=== PATIENT | female | born 1970 | race Caucasian/White ===

== ENCOUNTER 2018-10-23 22:27 | Observation (INO) | payer SELFPAY ==
[2018-10-23] MEDS ORDERED: Nitroglycerin 0.4 MG TAB 1 EACH ONE (23:55)
[2018-10-23] MEDS ORDERED: Ondansetron PF 4 MG/2 ML Vial IVP PRN (23:59)
[2018-10-23] MEDS ORDERED: Acetaminophen 650 MG Suppository PR PRN (23:59)
[2018-10-24 01:15] VITALS: BMI 42.7
[2018-10-24 02:44] LABS: #Basophils 0.1 thou/uL (0.0-0.2); #Eosinphils 0.2 thou/uL (0.0-0.7); #Lymphocytes 3.3 thou/uL (1.20-3.40); #Monocytes 0.6 thou/uL (0.11-0.59); #Neutrophils 2.5 thou/uL (1.40-6.50); %Basophils 1.1 % (0.0-1.0); %Eosinophils 3.3 % (0.0-10.0); %Lymphocytes 49.2 % (21.0-51.0); %Neutrophils 37.4 % (42.0-75.0); Hemoglobin 15.2 g/dL (12.0-16.0); Mean Corpuscular HGB CONC 32.9 g/dL (32.0-36.0); Mean Corpuscular Hemoglobin 30.6 pg (27.0-31.0); Mean Corpuscular Volume 93.1 fL (78.0-98.0); Mean Platelet Volume 8.1 fL (7.4-10.4); Platelet Count 232 thou/uL (130-400); RBC Distribution Width 12.3 % (11.5-14.5); Red Blood Cell (RBC) Count 4.98 mill/uL (4.20-5.40); White Blood Cell (WBC) Count 6.7 thou/uL (4.8-10.8)
[2018-10-24 03:08] LABS: Troponin I Less than 0.010 ng/mL (< 0.028)
[2018-10-24 03:22] LABS: Anion Gap 15 mmol/L (10-20); BUN (Urea Nitrogen) 12 mg/dL (7.0-18.7); Calc. Creatinine Clearance 148 mL/min (70-130); Calcium 9.2 mg/dL (7.8-10.44); Carbon Dioxide 19 mmol/L (22-29); Chloride 109 mmol/L (98-107); Estimated GFR-MDRD 88; Glucose 98 mg/dL (70-105); Potassium 3.7 mmol/L (3.5-5.1); Sodium 139 mmol/L (136-145)
--- NOTE | 2018-10-24 05:05 | HP ---
PRIMARY CARE DOCTOR: The patient has no PCP. CODE STATUS: Full code. TIME OF EVALUATION: 12 a.m. CHIEF COMPLAINT: Chest pain. HISTORY OF PRESENT ILLNESS: A 48-year-old female patient. The patient came to the hospital after having chest pain that started around 3 days ago and reported that was in the middle of the chest radiating to jaw. She got very scary because the symptoms being getting worse and has been severe and reportedly she had some acute SC a few months ago, also on the other side she said that she had a negative stress test in [place], [place], in [facility]. Symptoms are described as pressure-like, associated with nausea. REVIEW OF SYSTEMS: CONSTITUTIONAL: No fever, chills, or generalized weakness. RESPIRATORY: No cough, sputum production, or shortness of breath. CARDIOVASCULAR: The patient has chest pain. No palpitations. GASTROINTESTINAL: The patient has nausea. No vomiting, diarrhea, or abdominal pain. SUPERVISOR MACHINING: No dizziness, headache, or feeling lightheaded. GENITOURINARY: No burning on urination. EXTREMITIES: No leg swelling. All other systems were reviewed and negative except for the findings mentioned above. PAST MEDICAL HISTORY: Includes diabetes and hypertension. PAST SURGICAL HISTORY: Hysterectomy, carpal tunnel bilateral surgery, and cholecystectomy. PSYCHIATRIC HISTORY: Bipolar disorder. SOCIAL HISTORY: No alcohol. No drugs. No smoking history. FAMILY HISTORY: Reviewed and noncontributory for current presentation. ALLERGIES: SULFA AND PENICILLIN. REPORTED MEDICATIONS: 1. Cymbalta. 2. [place] carbonate. 3. Atenolol. 4. Jardiance. 5. . 6. Abilify. PHYSICAL EXAMINATION: VITAL SIGNS: Blood pressure 146/106 with heart rate 87, respiratory rate was 18, temperature 98.1, pain was 7, oxygen saturation was 97% on room air. GENERAL APPEARANCE: The patient is alert, oriented, no acute distress. HEENT: Eyes, normal conjunctivae. Moist oral mucosa. Anicteric. No JVD. RESPIRATORY: Bilateral air entry. No rales or wheezes. Symmetric expansion. CARDIOVASCULAR: Normal rate, regular rhythm. No murmurs. No gallop. No edema. ABDOMEN: Soft. Normal bowel sounds. MUSCULOSKELETAL: Baseline range of motion and strength. No tenderness. SKIN: Warm and intact. No pallor. No rash. No redness. Capillary refill seems to be intact. NEUROLOGIC: No evidence of any new focal weakness. Cranial nerves seems to be intact. PSYCH: The patient is in good mood. No anxiety. Optimal judgment. IMAGING DATA: EKG was reviewed. The patient has normal sinus rhythm with a rate of 77, [place] 142, QRS duration 88, QT corrected 443. Chest x-ray was reviewed. The patient has no acute cardiopulmonary findings. LABORATORY DATA: Labs were reviewed. The patient has a white count 6.7, hemoglobin 15.2, MCV 93, platelet count 232. Chemistry; sodium 139, potassium 3.7, chloride 109, carbon dioxide 19, anion gap 15, BUN 12, creatinine 0.71, GFR 88, glucose 98, calcium 9.2. Troponin negative x2. ASSESSMENT AND PLAN: The patient will be placed in the hospital with following medical problems: 1. Chest pain, rule out acute coronary syndrome. We will trend troponin, until they are negative. We will place her on observation daily. She will need to obtain a stress test report from [facility] in [place], [place] that she had 3 months ago, most likely will not need to repeat the same test again. 2. History of depression, reconcile home medications. 3. Controlled diabetes. We will reconcile home medication. We will place the patient on sliding scale for optimal control. 4. Deep venous thrombosis prophylaxis. Job ID: [id number]
[2018-10-24] MEDS: Ondansetron ODT 4 MG TAB PO PRN (07:42)
[2018-10-24] MEDS: Acetaminophen 325 MG TAB PO PRN ×3 (07:42→22:08)
[2018-10-24] MEDS: DULoxetine 30 MG CAP PO SCH (07:42)
[2018-10-24] MEDS: Atenolol 25 MG TAB PO SCH (07:43)
[2018-10-24] MEDS: Enoxaparin Sodium 40 MG/0.4 ML SYRINGE SC SCH (07:44)
[2018-10-24] MEDS: Insulin Glargine 20 UNITS in Pre-Filled Syringe 1 EACH SC SCH ×2 (07:45→20:08)
--- NOTE | 2018-10-24 18:54 | PRG ---
DATE OF SERVICE: 10/24/2018 SUBJECTIVE: Ms. Torres is a 48-year-old female with past medical history significant for diabetes, hypertension, and recent IA approximately 3 months ago , who presented to the hospital with chest pain radiating up into the jaw. Her EKG was negative for any acute ST or T-wave changes. Her serial enzymes have been negative; however, we are awaiting stress test results from [facility] in [place], from which the patient says she had a recent stress test. At this point , the patient does not report any chest pain similar to the episode she experienced yesterday; however, she does report a 2/10 constant chest discomfort. She denies any nausea or vomiting. She denies any shortness of breath. OBJECTIVE: VITAL SIGNS: Blood pressure 117/79, pulse is 75, O2 saturation is 94% on room air, respirations 20. GENERAL: This is an obese female, in no acute distress. HEENT: Head is atraumatic and normocephalic. Mucous membranes are moist. NECK: Supple. No lymphadenopathy. Trachea is midline. CV: S1 and S2. Regular rate and rhythm. No appreciable murmurs, rubs, or gallops. LUNGS: Regular respiratory rate and pattern. Clear to auscultation bilaterally. ABDOMEN: Soft, obese. Positive bowel sounds. EXTREMITIES: No edema. +2 DP pulses bilaterally. SKIN: Warm and dry. NEUROLOGIC: Cranial nerves 2 through 12 intact. The patient is nonfocal. LABORATORY DATA: WBC 6.7, RBC 4.92, hemoglobin 15.2, hematocrit 46.4, platelets are 232. Sodium 139, potassium 3.7, chloride 109, carbon dioxide 19, anion gap 15, creatinine 0.71, GFR 88, calcium 9.2. Troponin negative x2. ASSESSMENT: 1. Chest pain with radiation to the jaw, acute coronary syndrome ruled out. 2. Previous myocardial infarction, unknown type, but recent, the patient reports elevated cardiac enzymes. 3. Hypertension. 4. Diabetes mellitus type 2. 5. History of anxiety and depression. PLAN: At this point, we have requested records from [facility] in [place], [place]. Given the patient's repeat episode of angina, we will need to review recent nuclear stress test. I am worried about the patient's recent IA and recurrence of chest pain. The patient apparently did not have a left heart catheterization, and I would prefer to obtain nuclear stress test results rather than re-stressing the patient with radiation exposure so soon after last stress test, that was reportedly normal per patient. If stress test negative, will anticipate discharge if no further angina; if the patient continues to have recurrent chest pain, she will need a left heart catheterization at some point. Start ASA , statin. Continue B Megha. Consider ACEI. Care of this patient was discussed with Dr. Keith. Job ID: [id number] [facility]
[2018-10-25] MEDS: DULoxetine 30 MG CAP PO SCH (07:21)
[2018-10-25] MEDS: Enoxaparin Sodium 40 MG/0.4 ML SYRINGE SC SCH (07:21)
[2018-10-25] MEDS: Atenolol 25 MG TAB PO SCH (07:21)
[2018-10-25] MEDS: Aspirin 81 mg Enteric Coated Tablet PO SCH (07:21)
[2018-10-25] MEDS: Insulin Glargine 20 UNITS in Pre-Filled Syringe 1 EACH SC SCH ×2 (07:22→20:13)
[2018-10-25 12:32] LABS: #Basophils 0.1 thou/uL (0.0-0.2); #Eosinphils 0.1 thou/uL (0.0-0.7); #Lymphocytes 2.3 thou/uL (1.20-3.40); #Monocytes 0.4 thou/uL (0.11-0.59); #Neutrophils 3.9 thou/uL (1.40-6.50); %Lymphocytes 33.7 % (21.0-51.0); %Monocytes 5.6 % (0.0-10.0); %Neutrophils 56.8 % (42.0-75.0); Hemoglobin 15.8 g/dL (12.0-16.0); Mean Corpuscular HGB CONC 33.6 g/dL (32.0-36.0); Mean Corpuscular Hemoglobin 31.4 pg (27.0-31.0); Mean Corpuscular Volume 93.3 fL (78.0-98.0); Mean Platelet Volume 8.6 fL (7.4-10.4); Platelet Count 234 thou/uL (130-400); RBC Distribution Width 12.2 % (11.5-14.5); Red Blood Cell (RBC) Count 5.03 mill/uL (4.20-5.40); White Blood Cell (WBC) Count 6.8 thou/uL (4.8-10.8)
[2018-10-25 12:42] LABS: Anion Gap 13 mmol/L (10-20); BUN (Urea Nitrogen) 12 mg/dL (7.0-18.7); Calc. Creatinine Clearance 140 mL/min (70-130); Calcium 9.2 mg/dL (7.8-10.44); Carbon Dioxide 22 mmol/L (22-29); Chloride 106 mmol/L (98-107); Estimated GFR-MDRD 83; Glucose 133 mg/dL (70-105); Potassium 3.9 mmol/L (3.5-5.1); Sodium 137 mmol/L (136-145)
[2018-10-25] MEDS: Acetaminophen 325 MG TAB PO PRN (12:50)
[2018-10-25] MEDS: Ondansetron ODT 4 MG TAB PO PRN (12:51)
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
[2018-10-25] MEDS ORDERED: Dextrose 5% in Water 1,000 ML IV PRN (17:25)
[2018-10-25] MEDS ORDERED: Dextrose 50% Abboject 50 ML SYRINGE SLOW IVP PRN (17:25)
[2018-10-25] MEDS ORDERED: HumaLOG 300 UNITS/3 ML VIAL SC PRN ×2 (17:25)
[2018-10-25] MEDS ORDERED: Atorvastatin Calcium 20 MG TAB PO SCH (21:00)
[2018-10-26] MEDS: Acetaminophen 325 MG TAB PO PRN (02:44)
[2018-10-26] MEDS: Enoxaparin Sodium 40 MG/0.4 ML SYRINGE SC SCH (09:40)
[2018-10-26] MEDS: Atenolol 25 MG TAB PO SCH (09:41)
[2018-10-26] MEDS: Insulin Glargine 20 UNITS in Pre-Filled Syringe 1 EACH SC SCH (09:41)
[2018-10-26] MEDS: Aspirin 81 mg Enteric Coated Tablet PO SCH (09:41)
[2018-10-26] MEDS: DULoxetine 30 MG CAP PO SCH (09:41)
[2018-10-26 12:05] VITALS: BP 109/64; TEMP 98.5
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
== END 2018-10-26 15:42 | disposition home or self-care (01) ==
LOC: ERS 22:27 → 2SW 23:44
PROVIDERS: ADMIT Hospitalist; ATTEND Hospitalist
DX: R07.89 Other chest pain (principal); R68.84 Jaw pain; E11.9 Type 2 diabetes mellitus without complications; I10 Essential (primary) hypertension; F31.9 Bipolar disorder, unspecified; F41.9 Anxiety disorder, unspecified; I25.2 Old myocardial infarction; I25.10 Atherosclerotic heart disease of native coronary artery without angina pectoris; Z88.2 Allergy status to sulfonamides; Z88.0 Allergy status to penicillin; Z79.4 Long term (current) use of insulin; Z79.899 Other long term (current) drug therapy
CPT/HCPCS: 36415; 36416; 80048; 84484; 85025; 85652; 90471; 90732; 93005; 96372; G0009; G0378; J1650; J1825; Q0162

== ENCOUNTER 2018-12-25 11:16 | Inpatient (IN) | payer SELFPAY ==
[2018-12-25 11:31] LABS: #Basophils 0.1 thou/uL (0.0-0.2); #Eosinphils 0.2 thou/uL (0.0-0.7); #Lymphocytes 4.1 thou/uL (1.20-3.40); #Monocytes 0.7 thou/uL (0.11-0.59); #Neutrophils 3.7 thou/uL (1.40-6.50); %Basophils 1.2 % (0.0-1.0); %Eosinophils 2.2 % (0.0-10.0); %Lymphocytes 46.3 % (21.0-51.0); %Monocytes 8.2 % (0.0-10.0); %Neutrophils 42.1 % (42.0-75.0); Hemoglobin 15.8 g/dL (12.0-16.0); Mean Corpuscular HGB CONC 33.6 g/dL (32.0-36.0); Mean Corpuscular Hemoglobin 30.5 pg (27.0-31.0); Mean Corpuscular Volume 90.8 fL (78.0-98.0); Mean Platelet Volume 8.1 fL (7.4-10.4); Platelet Count 320 thou/uL (130-400); RBC Distribution Width 12.3 % (11.5-14.5); Red Blood Cell (RBC) Count 5.18 mill/uL (4.20-5.40); White Blood Cell (WBC) Count 8.8 thou/uL (4.8-10.8)
[2018-12-25 11:39] LABS: PTT 24.9 SEC (22.9-36.1); Prothrombin Time 12.7 SEC (12.0-14.7)
[2018-12-25 11:50] LABS: ALT (SGPT) 31 U/L (8-55); AST (SGOT) 27 U/L (5-34); Albumin 4.2 g/dL (3.5-5.0); Alkaline Phosphatase 120 U/L (40-150); Anion Gap 15 mmol/L (10-20); BUN (Urea Nitrogen) 11 mg/dL (7.0-18.7); Bilirubin, Total 0.4 mg/dL (0.2-1.2); CK (CPK) 254 U/L (29-168); Calc. Creatinine Clearance 0 mL/min (70-130); Calcium 9.6 mg/dL (7.8-10.44); Carbon Dioxide 23 mmol/L (22-29); Chloride 103 mmol/L (98-107); Estimated GFR-MDRD 79; Globulin 3.2 g/dL (2.4-3.5); Glucose 177 mg/dL (70-105); Potassium 3.6 mmol/L (3.5-5.1); Protein, Total 7.4 g/dL (6.0-8.3); Sodium 137 mmol/L (136-145)
--- NOTE | 2018-12-25 12:31 | RAD ---
EXAM: Single view of the chest HISTORY: Left chest heaviness COMPARISON: 10/23/2018 FINDINGS: Single view of the chest shows a normal sized cardiomediastinal silhouette. There is no adrian dence of consolidation, mass, or pleural effusion. The bones are unremarkable. IMPRESSION: No evidence of acute cardiopulmonary disease
--- NOTE | 2018-12-25 12:31 | CT ---
NONCONTRAST CT HEAD: HISTORY: Left-sided weakness that began last night at midnight. Heaviness on left side of face. COMPARISON: None. FINDINGS: There is no evidence of a hemorrhage, acute infarct, mass effect, or midline shift. The ventricular system is normal in size, shape, and position. The limited visualized paranasal sinuses and mastoid air cells are clear. Calvarial structures have a normal appearance. IMPRESSION: 1. No acute intracranial abnormalities demonstrated. 2. The above findings were discussed with Dr. Barajas in the emergency department on 12/25/2018 at 12 06 hours. CODE CR POS: [email or web address]
[2018-12-25 13:14] LABS: Bacteria/HPF None Seen HPF (None Seen); Bilirubin Negative (Negative); Blood, Urine 2+ (Negative); Clarity Clear (Clear); Glucose, Urine (Dipstick) Greater than 1000 mg/dL (Negative); Leukocyte 75 Leu/uL (Negative); Nitrite Negative (Negative); Protein, Urine (Dipstick) Negative (Neg-Trace); RBC/HPF 21-50 HPF (0-3); Squamous Epithelial 0-3 HPF (0-3); Transitional Epithelial 0-3 HPF (None Seen); Urobilinogen Normal mg/dL (Less than 2)
--- NOTE | 2018-12-25 13:23 | CT ---
CT ANGIOGRAM HEAD WITH IV CONTRAST AND 3D RECONSTRUCTIONS CT ANGIOGRAM NECK WITH IV CONTRAST AND 3D RECONSTRUCTIONS: HISTORY: Left-side weakness that began last night at midnight. Heaviness to left side of face. COMPARISON: Noncontrast CT head on 12/25/2018. FINDINGS: There is a normal arrangement of the great vessels at the aortic arch which are patent. There is a c ommon origin of the innominate artery and left common carotid artery. A portion of the left subclavi an artery is not visualized due to dense contrast within the left subclavian vein. The innominate and right subclavian artery are patent. The bilateral common carotid arteries as well as the bilateral internal and external carotid arteries are patent. The vertebral arteries are codominant and patent. The bilateral anterior cerebral and middle cerebral arteries are patent. The anterior cerebral arter y is visualized and patent. The posterior cerebral arteries are patent with patent posterior communicating arteries also visualiz ed. Bilateral middle cerebral and anterior cerebral arteries are patent. No focal stenosis or branch occlusion is seen. There is no aneurysm identified within the limitations of the technique of this exam. There is a 9 mm hypodense nodule in the superior pole of the left lobe of the thyroid gland. Nonemer gent thyroid ultrasound is recommended. There is volume loss present in the visualized upper lung zones. Degenerative changes are seen in the cervical spine. IMPRESSION: 1. Patent bilateral carotid arteries. 2. Patent bilateral vertebral arteries. 3. No focal stenosis or branch occlusion is seen involving the [place] or vertebrobasilar s ystem, and no filling defects are seen to suggest thrombus. 4. Hypodense nodule left lobe of the thyroid gland. Nonemergent thyroid ultrasound is recommended f or further evaluation. 5. The above findings were discussed with Dr. Barajas in the emergency department on 12/25/2018 at 123 6 hours. CODE CR POS: LIZ
[2018-12-25] MEDS ORDERED: Ondansetron PF 4 MG/2 ML Vial ONE (13:58)
[2018-12-25] MEDS ORDERED: Aspirin Chewable 81 MG TAB ONE (13:59)
[2018-12-25] MEDS ORDERED: Senokot S 8.6-50 MG TAB PO PRN ×2 (14:06→17:05)
[2018-12-25] MEDS ORDERED: hydrALAZINE 20 MG/ML VIAL SLOW IVP PRN ×2 (14:06→17:05)
[2018-12-25] MEDS ORDERED: Ondansetron ODT 4 MG TAB PO PRN (14:06)
[2018-12-25] MEDS ORDERED: Acetaminophen 325 MG TAB PO PRN (14:06)
[2018-12-25] MEDS ORDERED: Bisacodyl 10 MG SUPP PR PRN ×2 (14:06→17:04)
[2018-12-25] MEDS ORDERED: HumaLOG 300 UNITS/3 ML VIAL SC PRN (14:06)
[2018-12-25] MEDS ORDERED: Ondansetron PF 4 MG/2 ML Vial IVP PRN ×2 (14:06→17:05)
[2018-12-25] MEDS ORDERED: Dextrose 5% in Water 1,000 ML IV PRN ×2 (14:06→17:04)
[2018-12-25] MEDS ORDERED: Dextrose 50% Abboject 50 ML SYRINGE SLOW IVP PRN ×2 (14:06→17:04)
[2018-12-25] MEDS ORDERED: Sodium Chloride 0.9% 1,000 ML IV SCH (14:15)
--- NOTE | 2018-12-25 15:40 | HP ---
PRIMARY CARE PHYSICIAN: Dr. Neo Bar. CHIEF COMPLAINT: Left-sided numbness and heaviness. HISTORY OF PRESENT ILLNESS: A 48-year-old female with known history of obesity, hypertension, bipolar disorder, and tobacco abuse disorder, brought in by EMS due to left-sided limb weakness and numbness. The patient reported that she started having left-sided facial numbness as well as left-sided upper and lower extremity heaviness since last night. Symptoms persisted even this morning associated with nausea and ill feeling, but she managed to get to work. At work, colleagues found she had elevated blood pressure of about 170/116. There was some concern about stroke, given persistent left-sided heaviness, hence EMS were called. EMS noted blood pressure above 200s on arrival and the patient was given sublingual nitroglycerin followed by nitroglycerin paste. When the patient arrived in the emergency room, blood pressure was 133 systolic. However, during my evaluation, blood pressure did drop to 96 systolic. The patient reportedly took 325 mg of aspirin last night, which she normally does and was also given 81 mg tablets x2 this morning at work place before arrival. She also complained of some blurred vision on the left eye. There was no associated chest pain, shortness of breath, leg swelling, dysuria, hematuria, abdominal pain, cough, palpitations. She admitted to headache, but headache started after nitroglycerin paste was started and it subsided when nitroglycerin paste was finally taken off by me. The patient reported that she has been working a lot recently. Evaluation in the emergency room with CT of head, CT angio of head and neck were unremarkable. The patient is admitted for further evaluation and treatment. PAST MEDICAL HISTORY: 1. Bipolar disorder. 2. Obesity. 3. Type-2 diabetes mellitus. 4. Tobacco abuse disorder. 5. Hypertension. PAST SURGICAL HISTORY: 1. Bilateral carpal tunnel release. 2. Right foot fracture repair with implant. 3. Cholecystectomy. FAMILY HISTORY: Significant for hypertension, diabetes, and coronary artery disease in mother; hypertension, Parkinson, and dementia in father. SOCIAL HISTORY: The patient lives with spouse. Smokes about half-a-pack a day. Denied recreational drug use. ALLERGIES: REPORTED ALLERGY TO THE FOLLOWING; 1. PENICILLIN. 2. SULFA. REVIEW OF SYSTEMS: A 12-point review of system performed was negative other than pertinent negatives and positives included in the history of present illness. PHYSICAL EXAMINATION: VITAL SIGNS: Most recent vitals showed BP of 90/60, pulse 88, respiratory rate 18, SpO2 of 98% on room air, and temperature of 98.2. GENERAL: Obese female, in no obvious distress. Afebrile. Anicteric. Acyanotic. HEENT: Normocephalic, atraumatic. Pupils are equal and reacting to light. Oral mucosa is moist. NECK: Supple, nontender with full range of motion. CARDIOVASCULAR: Regular rhythm and rate with normal heart sounds 1 and 2. RESPIRATORY: Fair air entry bilaterally with no obvious crackle or rhonchi or use of accessory muscles. GI: Obese, soft, nontender, nondistended with normal bowel sounds. EXTREMITIES: Grossly normal looking, atraumatic with no edema, erythema, or cyanosis. Distal pulses are palpable. NEUROLOGIC: Conscious, alert, and oriented x3 with appropriate mental status. The patient is conversational with no dysarthria or aphasia. Cranial nerves 2 through 12 are grossly intact with the exception of decreased sensation on the left side of face. There is no facial droop. Power is 5/5 at right lower and upper extremities and 4/5 at left upper and lower extremities. There is mild drift of both left upper and lower extremities. Sensation is grossly decreased on the left side of body. Tone and reflex are grossly normal. PSYCHIATRIC: Normal affect with appropriate behavior and insight. DIAGNOSTIC DATA: CBC showed WBC count of 8.8, hemoglobin of 15.8, MCV of 90.8, platelets of 320. Coagulation panel showed PT 12.7, INR 1.0, PTT 24.9. BMP showed sodium 137, potassium 3.6, chloride 103, CO2 of 23, BUN 11, creatinine 0.78, glucose 177, calcium 9.6, total bilirubin 0.4, AST 27, ALT 31, alkaline phosphatase 120, total protein 7.4, albumin 4.2, globulin 3.2. Initial cardiac markers showed CK 254, troponin less than 0.01. Urinalysis showed light-yellow clear urine with pH of 6.0 and specific gravity of greater than 1.060. Protein is negative as well as ketone, nitrites, bilirubin. Leukocyte esterase is positive as well as blood. Glucose is more than a 1000 mg/dL. Microscopy showed RBC 21-50 and WBC of 4-6. EKG showed normal sinus rhythm with rate of 87. Chest x-ray showed no evidence of acute cardiopulmonary disease. CT of brain showed no acute intracranial abnormality. CT angio of the head and neck showed patent bilateral carotid arteries, patent bilateral vertebral arteries, no focal stenosis or branch occlusion involving the [place] of vertebrobasilar system and there were no filling defects to suggest thrombus. Hypodense nodular left lobe lesion of the thyroid was noted. Ultrasound is recommended for further evaluation. ASSESSMENT: 1. Acute left hemiparesis and hemisensory loss. 2. Presumed acute cerebrovascular accident. 3. Medication-induced hypotension. 4. Thyroid nodule. 5. Type-2 diabetes mellitus with hyperglycemia. 6. Morbid obesity. 7. Tobacco abuse disorder. 8. Microscopic hematuria. 9. Bipolar disorder. 10. Hypertension, on medication. PLAN: 1. We will give 1 L bolus of normal saline to get blood pressures above 100. 2. We will also admit the patient to the stroke unit and commence neuro checks and NIH score monitoring. 3. We will give additional 162 mg of aspirin to bring a total of 324. 4. We will start the patient on Lipitor as well as insulin therapy. 5. We will get hemoglobin A1c and TSH. 6. We will also get echocardiogram and MRI of the brain for further evaluation of acute left-sided hemiparesis or hemisensory loss. 7. DVT prophylaxis with Lovenox will be provided. 8. PT, OT, and Speech therapy will be consulted for evaluation. 9. Diabetic diet as tolerated will be commenced. 10. We will also start the patient's antidepressant. 11. Further treatment to follow depending on hospital course. 12. Code status: Full code. Spouse is the surrogate decision maker. Job ID: [id number]
[2018-12-25 16:14] VITALS: BMI 41.5
[2018-12-25] MEDS ORDERED: ISOVUE-370 76%-LOCM 1 ML ONE (16:15)
[2018-12-25] MEDS: Nicotine 14 MG PATCH TD SCH (17:13)
[2018-12-25] MEDS: Ondansetron ODT 4 MG TAB PO PRN (18:53)
[2018-12-25] MEDS: Acetaminophen 325 MG TAB PO PRN (18:53)
[2018-12-25] MEDS: HumaLOG 300 UNITS/3 ML VIAL SC PRN (18:53)
[2018-12-25] MEDS ORDERED: Lithium Carbonate 150 MG CAP PO SCH (21:00)
[2018-12-25] MEDS ORDERED: Insulin Glargine 20 UNITS in Pre-Filled Syringe 1 EACH SC SCH (21:00)
[2018-12-25] MEDS ORDERED: Famotidine 20 MG TAB PO SCH (21:00)
[2018-12-25] MEDS ORDERED: Atorvastatin Calcium 40 MG TAB PO SCH (21:00)
[2018-12-25] MEDS: Famotidine 20 MG TAB PO SCH (21:16)
[2018-12-25] MEDS: Atorvastatin Calcium 40 MG TAB PO SCH (21:16)
[2018-12-25] MEDS: Insulin Glargine 20 UNITS in Pre-Filled Syringe SC SCH (21:16)
[2018-12-25] MEDS: Lithium Carbonate 150 MG CAP PO SCH (21:16)
[2018-12-26] MEDS: HumaLOG 300 UNITS/3 ML VIAL SC PRN ×3 (06:32→18:27)
[2018-12-26] MEDS ORDERED: Enoxaparin Sodium 40 MG/0.4 ML SYRINGE SC SCH (09:00)
[2018-12-26] MEDS ORDERED: Aspirin 325 mg Enteric Coated Tablet PO SCH (09:00)
[2018-12-26] MEDS ORDERED: DULoxetine 30 MG CAP PO SCH (09:00)
--- NOTE | 2018-12-26 10:26 | MRI ---
NONCONTRAST MRI OF THE BRAIN: HISTORY: Left-sided weakness with heaviness to left side of face. TIA. COMPARISON: CT head on 12/25/2018. FINDINGS: There is a single punctate focus of increased FLAIR and T2 weighted signal intensity in the left deniz ventricular white matter of uncertain etiology but of doubtful clinical significance. No additional signal abnormalities are seen throughout the brain. There is no evidence of an acute infarction. The septum pellucidum and third ventricle are in the midline. The ventricular system is normal in si ze, shape, and position. Appropriate flow voids are demonstrated at the base of the brain. The orbits, paranasal sinuses, and skull base demonstrate a normal MRI appearance. IMPRESSION: No acute intracranial abnormality is demonstrated. POS: LIZ
[2018-12-26 10:50] LABS: #Basophils 0.1 thou/uL (0.0-0.2); #Eosinphils 0.2 thou/uL (0.0-0.7); #Lymphocytes 2.9 thou/uL (1.20-3.40); #Monocytes 0.6 thou/uL (0.11-0.59); #Neutrophils 3.5 thou/uL (1.40-6.50); %Basophils 0.9 % (0.0-1.0); %Eosinophils 2.5 % (0.0-10.0); %Lymphocytes 40.6 % (21.0-51.0); %Monocytes 7.8 % (0.0-10.0); %Neutrophils 48.2 % (42.0-75.0); Hemoglobin 15.8 g/dL (12.0-16.0); Mean Corpuscular HGB CONC 32.7 g/dL (32.0-36.0); Mean Corpuscular Hemoglobin 30.5 pg (27.0-31.0); Mean Corpuscular Volume 93.3 fL (78.0-98.0); Platelet Count 229 thou/uL (130-400); RBC Distribution Width 12.6 % (11.5-14.5); Red Blood Cell (RBC) Count 5.19 mill/uL (4.20-5.40); White Blood Cell (WBC) Count 7.2 thou/uL (4.8-10.8)
[2018-12-26 10:53] LABS: Hemoglobin A1c 8.3 % (4.0-6.0)
[2018-12-26] MEDS: Aspirin 325 mg Enteric Coated Tablet PO SCH (11:00)
[2018-12-26] MEDS: Lithium Carbonate 150 MG CAP PO SCH ×2 (11:00→20:58)
[2018-12-26] MEDS: DULoxetine 30 MG CAP PO SCH (11:00)
[2018-12-26] MEDS: Famotidine 20 MG TAB PO SCH ×2 (11:00→20:57)
[2018-12-26] MEDS: Insulin Glargine 20 UNITS in Pre-Filled Syringe SC SCH ×2 (11:01→20:57)
[2018-12-26] MEDS: Enoxaparin Sodium 40 MG/0.4 ML SYRINGE SC SCH (11:01)
[2018-12-26 11:21] LABS: BUN (Urea Nitrogen) 13 mg/dL (7.0-18.7); Calc. Creatinine Clearance 128 mL/min (70-130); Calcium 9.3 mg/dL (7.8-10.44); Carbon Dioxide 15 mmol/L (22-29); Cardiac Risk 4.3 (Less than 4.5); Chloride 106 mmol/L (98-107); Cholesterol 194 mg/dl (< 200 Desired); Estimated GFR-MDRD 77; Glucose 294 mg/dL (70-105); HDL Cholesterol 45 mg/dL (>60 Neg Risk); LDL Cholesterol, Calculated 107 mg/dL; Potassium 5.6 mmol/L (3.5-5.1); Sodium 131 mmol/L (136-145); Triglycerides 208 mg/dL (Less than 150)
[2018-12-26 11:36] LABS: Anion Gap 16 mmol/L (10-20)
--- NOTE | 2018-12-26 12:45 | PDOC.HOSPP ---
- Subjective Encounter Date: 12/26/18 Encounter Time: 12:44 Subjective: 48 y/o admitted with acute onset of left sided numbness and heaviness. Numbness persists. No facial drop. - Objective Vital Signs & Weight: Vital Signs (12 hours) Temp Pulse Resp BP BP Pulse Ox 12/26/18 07:42 98 F 95 12 131/97 H 95 12/26/18 04:00 98.4 F 93 16 136/89 94 L Weight Weight 205 lb 14.4 oz I&O: 12/25/18 12/26/18 12/27/18 06:59 06:59 06:59 Intake Total 1000 Balance 1000 Result Diagrams: 12/26/18 10:32 12/26/18 10:32 Additional Labs: Accuchecks 12/26/18 12/26/18 12/25/18 10:28 05:38 20:54 POC Glucose 281 H 311 H 314 H 12/25/18 17:19 POC Glucose 198 H ROS - Medication Medications: Active Medications Generic Name Dose Route Start Last Admin Trade Name Freq PRN Reason Stop Dose Admin Acetaminophen 650 mg 12/25/18 17:04 12/25/18 18:53 Tylenol PO 650 mg Q4H PRN Administration Headache/Fever/Mild Pain (1-3) Aspirin 325 mg 12/26/18 09:00 12/26/18 11:00 Ecotrin PO 325 mg DAILY FARIHA Administration Atorvastatin Calcium 40 mg 12/25/18 21:00 12/25/18 21:16 Lipitor PO 40 mg HS FARIHA Administration Duloxetine HCl 90 mg 12/26/18 09:00 12/26/18 11:00 Cymbalta PO 90 mg DAILY FARIHA Administration Enoxaparin Sodium 40 mg 12/26/18 09:00 12/26/18 11:01 Lovenox SC 40 mg 0900 FARIHA Administration Famotidine 20 mg 12/25/18 21:00 12/26/18 11:00 Pepcid PO 20 mg BID FARIHA Administration Insulin Glargine 20 units/ 0.2 mls @ 0 mls/hr 12/25/18 21:00 12/26/18 11:01 Miscellaneous Medication SC 0.2 mls BID FARIHA Administration Insulin Human Lispro 0 units 12/25/18 17:05 12/26/18 06:32 Humalog SC 5 unit .MILD SLIDING SCALE PRN Administration Mild Correctional Scale [place] Carbonate 300 mg 12/25/18 21:00 12/26/18 11:00 [place] Carbonate PO 300 mg BID FARIHA Administration Nicotine 14 mg 12/25/18 14:00 12/25/18 17:13 Nicoderm Patch TD 14 mg Q24HR FARIHA Administration Ondansetron HCl 4 mg 12/25/18 17:05 12/25/18 18:53 Zofran Odt PO 4 mg Q6H PRN Administration Nausea/Vomiting - Exam awake alert General - other findings: obese Eye: PERRL, anicteric sclera ENT: normocephalic atraumatic, moist mucosa Neck: supple, symmetric, no JVD Heart: RRR, no murmur Respiratory: CTAB, no wheezes, no rales, no ronchi Gastrointestinal: soft, non-tender, non-distended, normal bowel sounds (obese) Extremities: no cyanosis, no edema Neurological: CN's grossly intact (with the exception of left facial numbness. Mild left sided weakness noted) Psychiatric: normal affect, normal behavior, A&O x 3 Hosp A/P (1) TIA (transient ischemic attack) Code(s): G45.9 - TRANSIENT CEREBRAL ISCHEMIC ATTACK, UNSPECIFIED Status: Acute (2) Left-sided weakness Code(s): R53.1 - WEAKNESS Status: Acute (3) Left sided numbness Code(s): R20.0 - ANESTHESIA OF SKIN Status: Acute (4) Morbid obesity Code(s): E66.01 - MORBID (SEVERE) OBESITY DUE TO EXCESS CALORIES Status: Acute (5) HTN (hypertension) Code(s): I10 - ESSENTIAL (PRIMARY) HYPERTENSION Status: Acute (6) Bipolar 1 disorder Code(s): F31.9 - BIPOLAR DISORDER, UNSPECIFIED Status: Acute (7) Hyperkalemia Code(s): E87.5 - HYPERKALEMIA Status: Acute (8) Metabolic acidosis Code(s): E87.2 - ACIDOSIS Status: Acute (9) Pyuria Code(s): N39.0 - URINARY TRACT INFECTION, SITE NOT SPECIFIED Status: Acute - Plan kayexalate x 1 for hyperkalemia Continue insulin therapy. Restart oral hypoglycemic agents. Await MRI cervical spine ordered by neurology. MRI brain showed no acute infarct. Get urine culture. Get repeat bmp in the am.
--- NOTE | 2018-12-26 12:57 | MRI ---
EXAM: MRI cervical spine without and with contrast HISTORY: Left-sided weakness for 2 days COMPARISON: None TECHNIQUE: Multiplanar multisequence MR images were obtained of the cervical spine without and with c ontrast. FINDINGS: The vertebral bodies and intervertebral discs demonstrate normal height and alignment without fractur e or subluxation. The visualized cord demonstrates normal signal throughout. The craniocervical junction is unremarkab le. No abnormal enhancement is seen on this examination. The prevertebral soft tissues are unremarkable. No paraspinal soft tissue abnormality is seen. C2/3: No significant posterior bulge or protrusion. No posterior facet arthrosis. No central canal stenosis. No neural foraminal stenosis. C3/4: No significant posterior bulge or protrusion. No posterior facet arthrosis. No central canal stenosis. No neural foraminal stenosis. C4/5: Small central protrusion. No posterior facet arthrosis. Mild central canal stenosis. No neur al foraminal stenosis. C5/6: Small generalized concentric disc bulge. No posterior facet arthrosis. Moderate central canal stenosis. Moderate left and mild right neural foraminal stenosis. C6/7: Small left paracentral/subarticular disc bulge. No posterior facet arthrosis. Mild to moderat e central canal stenosis. Moderate left neural foraminal stenosis. C7/T1: No significant posterior bulge or protrusion. No posterior facet arthrosis. No central canal stenosis. No neural foraminal stenosis. IMPRESSION: 1. Acute cervical spine abnormality. 2. Degenerative changes of the mid cervical spine as above.
--- NOTE | 2018-12-26 12:59 | CON ---
DATE OF CONSULTATION: 12/26/2018 CHIEF COMPLAINT: Possible stroke. HISTORY OF PRESENT ILLNESS: The patient reports she has had history of problems with her left side of the body over the last few days and her symptoms started on 12/25/2018 and she had left-sided numbness and weakness of the face, arm, and leg since 12/24/2018 nighttime and she was admitted yesterday to the hospital. She had some nausea and felt sick. She had blood pressure of 170/116 and EMS noted blood pressures about 200s/133, and she continued to have hypertension. The patient took a 325 mg of aspirin prior to arrival and her normal dose is 81 mg. She also complained of some blurred vision to the ER initial admitting physician, but did not have that complaint when I was talking to her. She has had chronic neck pain and neck problems as well. PREVIOUS MEDICAL HISTORY: Bipolar disorder, obesity, type 2 diabetes, tobacco abuse, and hypertension. PREVIOUS SURGICAL HISTORY: Bilateral carpal tunnel release, right foot fracture repair with implant, and cholecystectomy. FAMILY HISTORY: Positive for hypertension, diabetes, coronary artery disease in her mother, hypertension, dementia, and Parkinson's in her father, who is 80. Mother at 75. The patient has a sister, who is 52, who is diabetic. The patient's children are 21 and 17, they are both healthy. SOCIAL HISTORY: Lives with her . Smokes half pack a day. No drug use. She does not drink alcohol. REVIEW OF SYSTEMS: PULMONARY: Negative for shortness of breath or cough. GASTROINTESTINAL: Negative for nausea, vomiting, or diarrhea. OPHTHALMOLOGIC: Positive for some blurred vision by report. DERMATOLOGIC: Negative for any skin rash. HEMATOLOGIC: Negative for bleeding diathesis. NEUROLOGIC: Positive for numbness and weakness on the left side. PHYSICAL EXAMINATION: VITAL SIGNS: Temperature 98, pulse 95, O2 saturations 95%, and blood pressure 131/97. GENERAL APPEARANCE: Well-built, well-nourished, slightly obese lady. CHEST: Clear vesicular breathing. CARDIOVASCULAR: S1 and S2 heard. No murmurs. ABDOMEN: Soft and nontender. No organomegaly noted. NEUROLOGICAL: Higher intellectual functions. Normal orientation to time, place, and person. Cranial nerves II through XII, normal extraocular movements. No facial weakness noted. Pupils are 2 mm, reactive to light bilaterally. Decreased sensation of face on the left side. Normal hearing bilaterally. Normal elevation of palate. Tongue midline. No atrophy noted. Motor examination, bulk normal, tone normal. Strength 5/5 on the right side. The left side was 5-/5 in the left arm, 3/5 in the left leg. Muscle groups tested deltoid, biceps, triceps, wrist extension and flexion, finger extension and flexion, iliopsoas, hamstrings, quadriceps, ankle dorsiflexion, ankle plantar flexion. Deep tendon reflexes were 2+ throughout. Cerebellar, high difficulty more so due to weakness with the left leg. [id number] was normal. Sensory, decreased on the left side for the face, arm, and leg distribution. DIAGNOSTIC DATA: Her workup, white count 7.2, hemoglobin 15.8, hematocrit 48.4, and platelets 229. Chemistry; sodium 131, potassium 5.6, chloride 106, bicarb 15, BUN 13, creatinine 0.8, and glucose 294. Triglycerides 208, cholesterol 194, LDL 107, and HDL 45. TSH is 2.66. Urinalysis is mildly abnormal as noted. Coag screen was also normal. Her CT [place] was completed on admission and it did not show any focal stenosis, and her MRI brain was completed. No acute intracranial abnormality is demonstrated. IMPRESSION: The patient is a 48-year-old lady with diabetes and hypertension. She came in hypertensive and had systolic blood pressures of 200. She continues to have left face, arm, and leg numbness, which could be due to hypertensive crises rather than an acute stroke because MRI did not demonstrate any acute lesion. She has weakness in the left leg more than left arm, likely due to some cervical degenerative disease, which is the pattern we see with the C-spine disease at this time. RECOMMENDATIONS: Please obtain MRI of the C-spine and if MRI of the C-spine is abnormal, she might need neurosurgical consult. Please call Neurology if you have any further questions. I will be off call from tomorrow. Please keep her on aspirin 325 mg along with statin for stroke prevention. Call me if you have any further questions today. Job ID: [id number]
[2018-12-26] MEDS: Ondansetron ODT 4 MG TAB PO PRN (14:32)
[2018-12-26] MEDS: Sodium Bicarbonate Tab 325 MG TAB PO SCH ×2 (15:49→20:58)
[2018-12-26] MEDS: Nicotine 14 MG PATCH TD SCH (15:49)
[2018-12-26] MEDS: Glimepiride 4 MG TAB PO SCH (15:49)
[2018-12-26] MEDS: Acetaminophen 325 MG TAB PO PRN ×2 (15:49→20:57)
[2018-12-26] MEDS ORDERED: Gadobenate Dimeglumine 529 MG/1 ML (20ML VIAL) ONE (16:22)
[2018-12-26] MEDS: Atorvastatin Calcium 40 MG TAB PO SCH (20:57)
[2018-12-27 05:55] LABS: Anion Gap 11 mmol/L (10-20); BUN (Urea Nitrogen) 14 mg/dL (7.0-18.7); Calc. Creatinine Clearance 139 mL/min (70-130); Calcium 8.7 mg/dL (7.8-10.44); Carbon Dioxide 24 mmol/L (22-29); Chloride 103 mmol/L (98-107); Estimated GFR-MDRD 84; Glucose 236 mg/dL (70-105); Potassium 3.9 mmol/L (3.5-5.1); Sodium 134 mmol/L (136-145)
[2018-12-27] MEDS: HumaLOG 300 UNITS/3 ML VIAL SC PRN ×3 (06:25→18:38)
[2018-12-27] MEDS: Lithium Carbonate 150 MG CAP PO SCH ×2 (08:38→21:15)
[2018-12-27] MEDS: Sodium Bicarbonate Tab 325 MG TAB PO SCH ×3 (08:38→21:15)
[2018-12-27] MEDS: Aspirin 325 mg Enteric Coated Tablet PO SCH (08:38)
[2018-12-27] MEDS: Famotidine 20 MG TAB PO SCH ×2 (08:38→21:15)
[2018-12-27] MEDS: DULoxetine 30 MG CAP PO SCH (08:39)
[2018-12-27] MEDS: Atenolol 25 MG TAB PO SCH (08:39)
[2018-12-27] MEDS: Aripiprazole 10 MG TAB PO SCH (08:39)
[2018-12-27] MEDS: Glimepiride 4 MG TAB PO SCH ×2 (08:40→16:07)
[2018-12-27] MEDS: Enoxaparin Sodium 40 MG/0.4 ML SYRINGE SC SCH (08:42)
[2018-12-27] MEDS ORDERED: Empagliflozin [Jardiance] 10 MG PO SCH (09:00)
[2018-12-27] MEDS ORDERED: Insulin Glargine 25 UNITS in Pre-Filled Syringe 1 EACH SC SCH (09:00)
[2018-12-27] MEDS: Nicotine 14 MG PATCH TD SCH (14:12)
[2018-12-27] MEDS: Acetaminophen 325 MG TAB PO PRN (16:07)
--- NOTE | 2018-12-27 19:20 | PDOC.HOSPP ---
- Subjective Encounter Date: 12/27/18 Encounter Time: 17:19 Subjective: 48 y/o admitted with acute onset of left sided numbness and heaviness. Left sided numbness and weakness persists. No facial drop. Was seen earlier by neurosurgery. - Objective Vital Signs & Weight: Vital Signs (12 hours) Temp Pulse Pulse Pulse Resp BP BP 12/27/18 15:38 97.8 F 71 16 12/27/18 15:31 76 66 136/85 12/27/18 11:57 97.9 F 70 16 12/27/18 10:26 66 70 128/66 12/27/18 08:39 64 138/98 H 12/27/18 07:46 97.9 F 67 16 BP BP Pulse Ox 12/27/18 15:38 105/69 97 12/27/18 15:31 105/69 12/27/18 11:57 118/71 95 12/27/18 10:26 131/91 H 12/27/18 08:39 12/27/18 07:46 138/98 H 98 Weight Admit Weight 205 lb 14.4 oz Weight 205 lb 14.4 oz I&O: 12/26/18 12/27/18 12/28/18 06:59 06:59 06:59 Intake Total 1000 5754 1570 Output Total 450 2100 Balance 1000 5304 -530 Result Diagrams: 12/26/18 10:32 12/27/18 05:19 Additional Labs: Accuchecks 12/27/18 12/27/18 12/27/18 16:38 11:01 05:55 POC Glucose 189 H 242 H 226 H 12/26/18 20:52 POC Glucose 200 H ROS - Medication Medications: Active Medications Generic Name Dose Route Start Last Admin Trade Name Freq PRN Reason Stop Dose Admin Acetaminophen 650 mg 12/25/18 17:04 12/27/18 16:07 Tylenol PO 650 mg Q4H PRN Administration Headache/Fever/Mild Pain (1-3) Aripiprazole 10 mg 12/27/18 09:00 12/27/18 08:39 Abilify PO 10 mg DAILY FARIHA Administration Aspirin 325 mg 12/26/18 09:00 12/27/18 08:38 Ecotrin PO 325 mg DAILY FARIHA Administration Atenolol 12.5 mg 12/27/18 09:00 12/27/18 08:39 Tenormin PO 12.5 mg DAILY FARIHA Administration Atorvastatin Calcium 40 mg 12/25/18 21:00 12/26/18 20:57 Lipitor PO 40 mg HS FARIHA Administration Duloxetine HCl 90 mg 12/26/18 09:00 12/27/18 08:39 Cymbalta PO 90 mg DAILY FARIHA Administration Enoxaparin Sodium 40 mg 12/26/18 09:00 12/27/18 08:42 Lovenox SC 40 mg 0900 FARIHA Administration Famotidine 20 mg 12/25/18 21:00 12/27/18 08:38 Pepcid PO 20 mg BID FARIHA Administration Glimepiride 4 mg 12/26/18 16:30 12/27/18 16:07 Amaryl PO 4 mg BID-AC FARIHA Administration Insulin Human Lispro 0 units 12/25/18 17:05 12/27/18 18:38 Humalog SC 2 unit .MILD SLIDING SCALE PRN Administration Mild Correctional Scale [place] Carbonate 300 mg 12/25/18 21:00 12/27/18 08:38 [place] Carbonate PO 300 mg BID FARIHA Administration Nicotine 14 mg 12/25/18 14:00 12/27/18 14:12 Nicoderm Patch TD 14 mg Q24HR FARIHA Administration Ondansetron HCl 4 mg 12/25/18 17:05 12/26/18 14:32 Zofran Odt PO 4 mg Q6H PRN Administration Nausea/Vomiting Sodium Bicarbonate 650 mg 12/26/18 15:00 12/27/18 16:07 Bicarbonate, Sodium PO 650 mg TID FARIHA Administration - Exam awake alert General - other findings: obese Eye: anicteric sclera ENT: normocephalic atraumatic Neck: supple, symmetric, no JVD Heart: RRR Respiratory: no wheezes, no rales, no ronchi, normal chest expansion Gastrointestinal: soft, non-tender, non-distended, normal bowel sounds Gastrointestinal - other findings: morbidly obese Extremities: no cyanosis, no edema Skin: no rashes Neurological: CN's grossly intact Neurological - other findings: Mild left sided weakness Psychiatric: normal affect, A&O x 3 Hosp A/P (1) Left-sided weakness Code(s): R53.1 - WEAKNESS Status: Acute (2) TIA (transient ischemic attack) Code(s): G45.9 - TRANSIENT CEREBRAL ISCHEMIC ATTACK, UNSPECIFIED Status: Acute (3) Left sided numbness Code(s): R20.0 - ANESTHESIA OF SKIN Status: Acute (4) Morbid obesity Code(s): E66.01 - MORBID (SEVERE) OBESITY DUE TO EXCESS CALORIES Status: Acute (5) HTN (hypertension) Code(s): I10 - ESSENTIAL (PRIMARY) HYPERTENSION Status: Acute (6) Bipolar 1 disorder Code(s): F31.9 - BIPOLAR DISORDER, UNSPECIFIED Status: Acute (7) Hyperkalemia Code(s): E87.5 - HYPERKALEMIA Status: Acute (8) Metabolic acidosis Code(s): E87.2 - ACIDOSIS Status: Acute (9) Pyuria Code(s): N39.0 - URINARY TRACT INFECTION, SITE NOT SPECIFIED Status: Acute (10) Cervical spinal stenosis Code(s): M48.02 - SPINAL STENOSIS, CERVICAL REGION Status: Acute - Plan Increase lantus to 30 bid. Continue oral hypoglycemic agents. Consulted Neurosurgery Re cervical spinal stenosis PT/OT to continue Await urine culture
[2018-12-27] MEDS: Atorvastatin Calcium 40 MG TAB PO SCH (21:15)
[2018-12-27] MEDS: Insulin Glargine 30 UNITS in Pre-Filled Syringe SC SCH (21:15)
--- NOTE | 2018-12-27 22:49 | CON ---
DATE OF CONSULTATION: HISTORY OF PRESENT ILLNESS: Ms. Torres is a 48-year-old female, who was brought to the emergency department on Thursday following concern for TIA or stroke. The patient was at work and her coworkers were concerned for some left-sided weakness, numbness and tingling as well as some left-sided face numbness and elevated blood pressure. The patient had blood pressure of 170/116 when EMS arrived to her location, but she stated that she had this heaviness on the left side. She has known degenerative disk disease, which she was treated for with a chiropractor approximately 2 years ago. At that time, she had some numbness and tingling and pain in the left upper extremity. She said that was never fully improved; however, she moved and did not continue followup at that time. Neurosurgery was consulted and following MRI of the cervical spine showing bulging disks at C4-5 and C6-7. There is foraminal stenosis at C5-6 as well. When I entered Ms. Torres's room this afternoon, she was resting comfortably. She states she continues to have some heaviness on the left upper and lower extremity and some mild neck pain. She states that she has decreased sensation in the left arm and the left leg compared to the right side and overall generalized weakness on that left arm compared to the right and the left lower leg compared to the right. She has strong muscle tone in upper and lower right extremities. Cranial nerves are tested and intact, and the patient is alert and oriented, answers questions appropriately and no other neurologic changes. REVIEW OF SYSTEMS: A 10-point review of systems has been completed and is negative other than stated in the above HPI. PAST MEDICAL HISTORY: Diabetes, hypertension. PAST SURGICAL HISTORY: Hysterectomy, carpal tunnel bilaterally, cholecystectomy, had a Lisfranc fracture in the right foot and left knee surgery. PSYCHIATRIC HISTORY: Bipolar. SOCIAL HISTORY: The patient denies alcohol, or drug use. Lives at home with her family. ALLERGIES: PENICILLIN AND SULFA. MEDICATIONS: 1. Cymbalta. 2. [place]. 3. Atenolol. 4. Jardiance. 5. Amaryl. 6. Abilify. 7. Aspirin. PHYSICAL EXAMINATION: VITAL SIGNS: Temperature 97.9, heart rate 70, respirations 16, O2 saturations 95% on room air, and blood pressure was 118/71. CONSTITUTIONAL: The patient is alert and oriented x3. She is afebrile. She is normotensive. Does not appear to be in any visible distress and she is nontoxic appearing. HEENT. Head is normocephalic and atraumatic. Pupils are equal, round, and reactive to light. Extraocular movements are intact. Hearing is intact. Moist mucous membranes. NECK: Normal range of motion. Trachea midline. No tenderness. RESPIRATIONS: Normal work of breathing on room air. Symmetric chest rise. EXTREMITIES: Upper and lower extremities, the patient states that she has decreased strength on the left compared to the right, 5/5 bilateral strength in deltoids, biceps, 4/5 left triceps, wrist extension, finger extension, finger intrinsics. Lower extremities 5/5 dorsiflexion, plantar flexion; however, 4/5 hip flexion, knee flexion, extension on the left. The patient's willingness to give full strength is undetermined at this time. She has subjective decreased sensation in the left upper and lower extremities. NEUROLOGIC: The patient is alert and oriented x3. Normal attention. Speech is spontaneous and fluent. Cranial nerves 2 through 12 are tested and intact. She has weakness on the left upper and lower extremities with subjective sensation change, left compared to right to light touch. IMAGING: MRI of the cervical spine shows small central disk protrusion at C4-5, small disk bulge at C5-6 with some moderate right-sided foraminal stenosis and a small disk protrusion at C6-7 with some [id number] stenosis at these levels. There is no significant cord compression or swelling noted in spinal cord. ASSESSMENT AND PLAN: Ms. Torres is a 48-year-old female with new onset left upper and lower extremity weakness. She has known cervical disk disease for a couple of years, which could contribute to some upper extremity radicular symptoms. There is none of compression on the spinal cord for any myelopathic symptoms, which would not be contributing to any lower extremity dysfunction. From a neurosurgical standpoint, Ms. Torres does not need any emergent surgery. We recommended that she can follow up in the office for cervical radiculopathy. Any further questions, please contact Neurosurgery Department. Job ID: [id number]
[2018-12-28 08:07] VITALS: BP 131/93; TEMP 97.7
[2018-12-28] MEDS: DULoxetine 30 MG CAP PO SCH (09:39)
[2018-12-28] MEDS: Famotidine 20 MG TAB PO SCH (09:39)
[2018-12-28] MEDS: Enoxaparin Sodium 40 MG/0.4 ML SYRINGE SC SCH (09:39)
[2018-12-28] MEDS: Aripiprazole 10 MG TAB PO SCH (09:39)
[2018-12-28] MEDS: Glimepiride 4 MG TAB PO SCH (09:39)
[2018-12-28] MEDS: Aspirin 325 mg Enteric Coated Tablet PO SCH (09:39)
[2018-12-28] MEDS: Lithium Carbonate 150 MG CAP PO SCH (09:39)
[2018-12-28] MEDS: Atenolol 25 MG TAB PO SCH (09:39)
[2018-12-28] MEDS: Sodium Bicarbonate Tab 325 MG TAB PO SCH (09:41)
[2018-12-28] MEDS: Insulin Glargine 30 UNITS in Pre-Filled Syringe SC SCH (09:41)
--- NOTE | 2018-12-28 18:43 | DIS ---
DATE OF ADMISSION: 12/25/2018 DATE OF DISCHARGE: 12/28/2018 PRIMARY CARE PHYSICIAN: Dr. Noe Bar. DISCHARGE DIAGNOSES: 1. Left-sided hemiparesis. 2. Possible acute CVA. 3. Morbid obesity. 4. Cervical spondylosis with [id number] spinal canal stenosis. 5. Hypertension. 6. Bipolar disorder. 7. Hyperkalemia. 8. Metabolic acidosis. 9. Asymptomatic bacteriuria. CONSULTS: 1. Neurology. 2. Neurosurgery. HOSPITAL COURSE: A 48-year-old obese female with known history of diabetes mellitus, who was admitted with acute onset of left-sided numbness and weakness. There was a concern about acute CVA. However, evaluation with CT scan of the brain as well as MRI was nondiagnostic. Due to persistent of symptoms, MRI of the cervical spine was obtained, and it showed multilevel spondylosis with mild to moderate spinal stenosis. Neurosurgery consult was obtained, and they are of the view that the cervical lesions are not responsible for the persistent left hemisensory loss and hemiparesis. They also were of the view that there is no immediate neurosurgical intervention needed. However, they wanted the patient to follow up in their office in 2 to 3 weeks. The patient also was found to have uncontrolled diabetes with hemoglobin A1c of 8.3, hence insulin therapy was adjusted. She remained stable and was subsequently discharged home. PHYSICAL EXAMINATION: VITAL SIGNS: Temperature 97.7, pulse 75, respiratory rate 18, SpO2 of 99% on room air, and blood pressure 131/93. GENERAL: Morbidly obese female, in no obvious distress. Afebrile. Anicteric. Acyanotic. HEENT: Normocephalic and atraumatic. Oral mucosa is moist. CARDIOVASCULAR: Regular rhythm and rate with normal heart sounds 1 and 2. RESPIRATORY: Fair air entry bilaterally with no obvious crackle or rhonchi or use of accessory muscles. GI: Morbidly obese, soft, nontender, nondistended with normal bowel sounds. EXTREMITIES: Grossly normal looking, atraumatic with no edema or erythema. 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 Cranial nerves 2 through 12 are grossly intact except mild subjective left-sided facial numbness. Power is 5/5 in right extremities and 4/5 in left extremities. The patient is ambulant with mild antalgic gait. DISCHARGE CONDITION: Stable. DISCHARGE DISPOSITION: Home. FOLLOWUP: 1. The patient is to follow up with PCP in 1 week. 2. To follow up with Neurosurgery in 2 to 3 weeks. 3. She is also to follow with outpatient physical and occupational therapy. DISCHARGE MEDICATIONS: 1. Abilify 10 mg p.o. daily. 2. Aspirin 325 mg p.o. daily at bedtime. 3. Atenolol 12.5 mg p.o. daily. 4. Cymbalta 90 mg p.o. daily. 5. Jardiance 10 mg p.o. daily. 6. Glimepiride 4 mg p.o. b.i.d. 7. [place] 300 mg p.o. b.i.d. 8. Nicotine patch 14 mg transdermal daily. 9. Lipitor 40 mg daily at bedtime. 10. Insulin 30 units subcutaneously b.i.d. TIME SPENT: This discharge took more than 33 minutes. Job ID: [id number]
== END 2018-12-28 11:38 | disposition home or self-care (01) | DRG 65 ==
LOC: ERS 11:16 → OBSVTOIN 15:35 → 2SE 15:35
PROVIDERS: ADMIT Internal Medicine Nephrology; ATTEND Internal Medicine Nephrology
DX: I63.9 Cerebral infarction, unspecified (principal); I16.9 Hypertensive crisis, unspecified; G81.94 Hemiplegia, unspecified affecting left nondominant side; Z68.41 Body mass index [BMI] 40.0-44.9, adult; E87.2 Acidosis; I10 Essential (primary) hypertension; I95.2 Hypotension due to drugs; E11.65 Type 2 diabetes mellitus with hyperglycemia; E66.01 Morbid (severe) obesity due to excess calories; R31.29 Other microscopic hematuria; F31.9 Bipolar disorder, unspecified; E04.1 Nontoxic single thyroid nodule; E87.5 Hyperkalemia; M48.02 Spinal stenosis, cervical region; Z90.49 Acquired absence of other specified parts of digestive tract; Z88.0 Allergy status to penicillin; Z88.2 Allergy status to sulfonamides
CPT/HCPCS: 36415; 36416; 70450; 70496; 70498; 70551; 71045; 72156; 80048; 80053; 80061; 81003; 81015; 82550; 83036; 84443; 84484; 85025; 85610; 85730; 87077; 87086; 93005; 93306; 96374; A9577; J1650; J1815; J2405; Q0162; Q9966